=== PATIENT | male | born 1955 | race Caucasian/White ===

== ENCOUNTER 2018-10-08 13:14 | Outpatient (RCR) | payer BC, OTHER | END 2019-01-06 | disposition home or self-care (01) | LOC: ONC 13:14 | PROVIDERS: ATTEND Internal Medicine Hematology & Oncology | DX: C67.9 Malignant neoplasm of bladder, unspecified (principal) | CPT/HCPCS: 99214 ==

== ENCOUNTER → 2022-08-09 | Outpatient (CLI) | payer BC, MEDICARE ==
--- NOTE | 2022-08-09 14:00 | Diagnostic Imaging Report ---
INDICATION: HX OF CALCULUS OF KIDNEY COMPARISON: CT dated 07/31/2018 FINDINGS: Single supine radiographic view of the abdomen was obtained and demonstrates nondistended loops of small bowel. There is no large collection of free peritoneal air. Mild air and stool are seen scattered throughout the colon. No unexpected extraosseous calcifications or radiopaque foreign bodies are seen. Bony structures show no gross acute abnormalities. IMPRESSION: 1. Nonobstructed small bowel gas pattern. Dictated by: Dictated on workstation # [id number]
== END ==
LOC: RAD FS 13:43
DX: Z87.442 Personal history of urinary calculi (principal)
CPT/HCPCS: 74018